=== PATIENT | female | born 1990 | race Caucasian/White ===

== ENCOUNTER 2021-04-28 18:56 | Emergency (ER) | payer BC, SELFPAY ==
[2021-04-28] VITALS (7 sets, daily range): BP systolic 116–134; BP diastolic 75–91; PULSE 67–101; RESP 12–18; TEMP 36.5; O2SAT 100
--- NOTE | ~2021-04-28 | CT_ITS ---
EXAMINATION: CT abdomen pelvis w con INDICATION: Left-sided abdominal pain TECHNIQUE: Computed tomographic images of the abdomen and pelvis were obtained after the administrati on of 100 cc of Omnipaque 350 intravenous contrast. The dose-length product (DLP) was 436.99 mGy-cm. Automated exposure control and iterative reconstruction technique were employed. COMPARISON: None available FINDINGS: Minimal dependent atelectasis is present in the lung bases. The heart size is normal. The g allbladder is surgically absent. There is mild enlargement of the common bile duct and central intrah epatic ducts which is likely due to post cholecystectomy state. Hypoattenuating lesions of the liver measuring up to 3 mm are too small to characterize but likely represent cysts. The spleen, pancreas, and adrenal glands are normal. The kidneys are unremarkable. No pathologically enlarged abdominal or pelvic lymph nodes are identified. There is no free intraperitoneal gas or evidence of bowel obstruct ion. There is a 4 cm cyst of the right adnexa. IMPRESSION: 1. No CT correlate for the patient's symptoms. Reviewed, dictated and finalized at location [facility] [employer] [employer]
[2021-04-28 20:07] LABS: Basophils Absolute Auto 0.1 K/mm3 (0.0-0.1); Basophils Percent Auto 0.4 % (0.2-1.2); Eosinophils Percent Auto 0.2 % (0-4.4); Hematocrit 41.2 % (37.0-47.0); Immature Granulocyte Absolute 0.07 K/mm3 (0.00-0.031); Immature Granulocyte Percent A 0.5 % (0-0.5); Lymphocytes Percent Auto 22.8 % (18.3-44.2); Mean Corpuscular Volume 91.4 fl (80-100); Monocytes Absolute Auto 1.5 K/mm3 (0.1-0.6); Monocytes Percent Auto 10.3 % (2.6-8.5); Neutrophils Absolute Auto 9.3 K/mm3 (1.3-6.7); Neutrophils Percent Auto 65.8 % (45.5-73.1); Platelet Count Result 215 k/mm3 (150-375); Red Blood Count 4.51 M/mm3 (4.2-5.4); Red Cell Distribution Width 13.2 % (11.5-14.5); White Blood Count 14.1 K/mm3 (4.5-10.0)
[2021-04-28 20:10] LABS: Add Urine Microscopic? NO; Appearance Urine Clear (Clear); Bilirubin Urine Negative (Negative); Blood Urine Negative (Negative); Color Urine Yellow (Yellow); Glucose Urine UA Negative (Negative); Ketones Urine Negative (Negative); Leukocyte Esterase Ur Negative LEU/UL (Negative); Nitrate Urine Negative (Negative); Protein Urine Negative (Negative); Specific Grav Ur 1.015 (1.001-1.035); Urobilinogen Urine Negative mg/dL (<2.0)
--- NOTE | 2021-04-28 20:20 | ED.GENADULT ---
HPI - General Adult General Chief complaint: Abdominal Pain Stated complaint: abd pain Time Seen by Provider: 04/28/21 20:14 Source: RN notes reviewed History of Present Illness HPI narrative: Patient presents emergency department from home for left-sided abdominal pain. Patient states pain began proximally 24 hours ago pain is located left upper quadrant radiates around the left flank described as sharp and stabbing states initially associated with nausea she denies any fevers or chills chest pain shortness of breath cough vomiting diarrhea or any other symptoms of concern. States she not take anything for pain at home Related Data Allergies Allergy/AdvReac Type Severity Reaction Status Date / Time latex Allergy Hives Verified 04/28/21 20:19 Sulfa (Sulfonamide Allergy Hives Verified 04/28/21 20:19 Antibiotics) Review of Systems Review of Systems: Gen.: Denies fevers or chills ENT: Denies congestion Respiratory: Denies shortness of breath or cough CV: Denies chest pain or palpitations GI: See HPI Musculoskeletal: Denies back pain or muscle pain Neuro: Denies numbness, tingling, weakness or focal weakness Skin: Denies rash Except as documented, all other systems reviewed and negative [facility] Past Medical History Medical History (Updated 04/28/21 @ 23:13 by Nic Ceron DO) Patient denies significant medical history Social History Social History (Updated 04/28/21 @ 20:21 by Nic Ceron DO) Smoking status: Current every day smoker Exam Narrative: APPEARANCE: No acute distress, nontoxic, resting in bed EYES: EOMI HEENT: Normocephalic, atraumatic, OMM RESPIRATORY: No respiratory distress Clear to auscultation bilaterally with no rhonchi wheezing or rales. CARDIOVASCULAR: Regular rate and rhythm without murmurs rubs or gallops. ABDOMINAL: Soft, nondistended tender palpation left upper quadrant no tenderness left lower quadrant, right upper quadrant right lower quadrant no rebound or guarding Back: No midline thoracic lumbar tenderness palpation tender to palpation over left paravertebral muscles T12-L2 MUSCULOSKELETAl: Moves all extremities. No clubbing, cyanosis or edema. NEURO: Awake and alert. Following commands, speech normal, no focal deficits SKIN:: Warm, dry. No rashes lesions or abrasions PSYCHIATRIC: Normal affect/mood, Course Course Emergency Course: Discussed with patient results of workup and diagnosis. Discussed need for follow-up with primary care, proper use of medication, and reasons to return to the emergency department. Patient understands and agrees to current treatment plan Vital Signs Vital signs: Vital Signs Temperature 97.7 F 04/28/21 19:22 Pulse Rate 101 H 04/28/21 19:22 Respiratory Rate 18 04/28/21 19:22 Blood Pressure 134/84 04/28/21 19:22 Pulse Oximetry 100 04/28/21 19:22 Temperature 97.7 F 04/28/21 19:22 Pulse Rate 72 04/28/21 22:45 Respiratory Rate 15 04/28/21 22:45 Blood Pressure 116/75 04/28/21 22:31 Pulse Oximetry 100 04/28/21 22:45 Medical Decision Making MDM Narrative Medical decision making narrative: Patient with pain in left ankle and upper abdomen. Lab results are within normal limits CT scan shows no acute process there is no overlying rash or signs of shingles at this time however that is a possibility the pain is worse with movement suspect musculoskeletal at this time as remainder of lab work has been unremarkable will discharge to follow-up as an outpatient Vital Signs Vital Signs: Vital Signs Temperature 97.7 F 04/28/21 19:22 Pulse Rate 101 H 04/28/21 19:22 Respiratory Rate 18 04/28/21 19:22 Blood Pressure 134/84 04/28/21 19:22 Pulse Oximetry 100 04/28/21 19:22 Temperature 97.7 F 04/28/21 19:22 Pulse Rate 72 04/28/21 22:45 Respiratory Rate 15 04/28/21 22:45 Blood Pressure 116/75 04/28/21 22:31 Pulse Oximetry 100 04/28/21 22:45 Lab Data Result diagrams: 04/28/21 19:58
[2021-04-28 20:24] LABS: Alanine Aminotransferase 15 U/L (4-35); Albumin Level 4.7 g/dL (3.5-5.1); Alkaline Phosphatase 82 U/L (38-126); Anion Gap 7 mmol/L (8-16); Aspartate Amino Transferase 23 U/L (14-36); Bilirubin,Total 0.9 mg/dL (0.2-1.3); Blood Urea Nitrogen 13 mg/dL (7-17); Calcium 9.7 mg/dL (8.4-10.2); Carbon Dioxide 28 mmol/L (22-30); Chloride 102 mmol/L (98-107); Estimated CRCL calculation 108 ml/min; Estimated Glomerular Filt Rate > 60; Glucose 94 mg/dL (65-110); Lipase 31 U/L (23-300); Potassium 3.8 mmol/L (3.4-5.0); Sodium 137 mmol/L (137-145)
[2021-04-28] MEDS: KETOROLAC 30 MG/ML VIAL (*BKC) IV PUSH (20:35)
[2021-04-28] MEDS: SODIUM CHLORIDE 0.9% IV 1,000 ML 999 ML IV CONT (20:35)
--- NOTE | 2021-04-28 20:40 | PC.NURSE ---
Patient taken to CT via stretcher.
--- NOTE | 2021-04-28 22:14 | ECG_ITS ---
Measurements Intervals [place] Rate: 71 P: 51 MS: 127 QRS: 63 QRSD: 92 T: 28 QT: 371 QTc: 404 Interpretive Statements SINUS RHYTHM BASELINE ARTIFACT- II, III, AVR, AVF, V1, V3-V6 NORMAL ECG Electronically Signed On 04-29-2021 7:06:51 WILL CALL CLERK by Kimo Arreola D.O.
[2021-04-28] MEDS: MORPHINE SULFATE (*CRX) 4 MG/ML INJ IV PUSH (22:24)
[2021-04-28 22:56] LABS: D Dimer < 0.27 ug/mL (<0.48)
[2021-04-28 22:58] LABS: Lactic Acid Reflex 0.6 mmol/L (0.7-2.1)
[2021-04-28 23:11] LABS: Troponin I < 0.012 ng/mL (0.000-0.034)
== END 2021-04-28 23:29 | disposition home or self-care (01) ==
PROVIDERS: Emergency Provider Emergency Medicine
DX: R10.12 Left upper quadrant pain (principal); F17.200 Nicotine dependence, unspecified, uncomplicated
CPT/HCPCS: 36415; 74177; 80053; 81003; 81025; 83605; 83690; 84484; 85025; 85380; 93005; 96361; 96374; 96375; 99284; A9270; J1885; J2270; J7030; Q9967